=== PATIENT | male | born 1995 | race Two or more races ===

== ENCOUNTER 2025-05-07 19:12 | Emergency (ER) | payer OTHER, SELFPAY ==
[2025-05-07 19:49] VITALS: BP 121/80; PULSE 62; RESP 18; TEMP 37.3; O2SAT 99; BMI 22.6
--- NOTE | 2025-05-07 19:54 | PD.EDNECK ---
ED Neck Injury Pain RME/HPI General Chief Complaint: Neck Pain/Injury Stated Complaint: NECK PAIN TODAY Time Seen by Provider: 05/07/25 19:41 Source: patient, RN notes reviewed and old records reviewed Arrival date/time: 05/07/25 19:12 Mode of arrival: ambulatory Limitations: no limitations RME / HPI RME / HPI Narrative: 30yom presents to ED for right sided neck pain that was present after waking up this morning. Denies preceding injury or fall. Patient reports increased pain with neck ROM to right. No fever, sore throat, focal weakness or numbness/tingling reported. Patient took ibuprofen at 1300 with mild relief. Related Data Previous Rx's ?Medication ?Instructions ?Recorded acetaminophen 500 mg tablet 500 mg PO Q6H PRN pain #30 tabs 05/07/25 (Tylenol Extra Strength) ibuprofen 600 mg tablet 600 mg PO Q6H PRN pain #30 tabs 05/07/25 lidocaine 5 % topical patch 1 patch topical QDAY PRN pain #15 05/07/25 ea methocarbamol 500 mg tablet 1,000 mg (2 x 500 mg) PO Q8H PRN 05/07/25 pain #30 tabs Allergies Allergy/AdvReac Type Severity Reaction Status Date / Time No Known Allergies Allergy Verified 05/07/25 19:14 Review of Systems Review of Systems Systems Reviewed: All systems reviewed, normal except as documented Constitutional Constitutional: Denies chills, Denies fever(s) and Denies headache(s) ENT Ears, Nose, Mouth, and Throat: Denies headache(s) and Reports neck pain Musculoskeletal Musculoskeletal: Reports limited range of motion, Reports neck pain, Denies numbness and Denies tingling Neurologic Neurologic: Denies localized weakness, Denies headache(s), Denies numbness and Denies tingling Past Medical History Surgical History OTHER SURGICAL HX: denies pshx Social History SMOKING STATUS: Never smoker SUBSTANCE USE: does not use ALCOHOL: Never Past Medical History Comments PMH COMMENT: denies pmhx ED Exam General Limitations: Present no limitations General appearance: Present alert and in no apparent distress Head Head exam: Present atraumatic and normocephalic Eye Eye exam: Present normal appearance, PERRL and EOMI ENT ENT exam: Present normal exam, normal oropharynx and mucous membranes moist Neck Neck exam: Present tenderness (right paraspinal, no midline ttp) Chest Chest inspection: Present normal inspection and symmetric chest wall rise Respiratory Respiratory exam: Present normal lung sounds bilaterally; Absent respiratory distress Cardiovascular Cardiovascular exam: Present regular rate and normal rhythm Extremities Exam Extremities exam: Present normal inspection and full ROM Back Exam Back exam: Present full ROM and tenderness (right upper trap); Absent vertebral tenderness Neurological Exam Neurological exam: Present alert, oriented X3 and CN II-XII intact; Absent motor sensory deficit Psychiatric Psychiatric exam: Present normal affect and normal mood Skin Skin exam: Present warm, dry, intact and normal color Course Quality Measures none Orders Category Date Time Status Acetaminophen Tab [Tylenol ES Tab] Med 05/07/25 19:55 Discontinued 1,000 mg PO X1 ONE CYCLObenzaPRINE [Flexeril] Med 05/07/25 19:55 Discontinued 10 mg PO X1 ONE Dexamethasone Inj [Decadron Inj] Med 05/07/25 19:55 Discontinued 10 mg IM X1 ONE Ketorolac Inj [Toradol Inj] Med 05/07/25 19:55 Discontinued 30 mg IM X1 ONE Vital Signs Vital signs: Vital Signs Temperature 99.2 F 05/07/25 19:49 Pulse Rate 62 05/07/25 19:49 Respiratory Rate 18 05/07/25 19:49 Blood Pressure 121/80 05/07/25 19:49 Pulse Oximetry (%) 99 05/07/25 19:49 Oxygen Delivery Method Room Air 05/07/25 19:49 Neck Pain MDM Narrative MDM Narrative:: 30yom presents to ED for right sided neck pain that was present after waking up this morning. Denies preceding injury or fall. Patient reports increased pain with neck ROM to right. No fever, sore throat, focal weakness or numbness/tingling reported. Patient took ibuprofen at 1300 with mild relief. Patient reassessed. Symptoms improved after medications administered. Patient is neurologically intact. Encouraged rest, nsaid, muscle relaxer, ice/heat application prn. Stable for dc, RTED precautions given. Patient data External records reviewed:: None (no prior visits) Clinical information provided by:: patient Social determinants that could affect healthcare access:: other (specify) (poor access to healthcare) Patient has the following chronic illnesses:: none How is presenting disease/condition affected by chronic disease/condition?: no chronic disease Evaluation data The following diagnostics were reviewed and interpreted by me:: other (specify) (none) Lab and/or radiology exams considered but not ordered:: Lspine xrays: no hx of trauma or fall, no midline tenderness Interpretation Summary: na Medications / Prescriptions Medications or Prescriptions considered but not ordered:: no antibiotics recommended at this time Medication administrations:: Medication Administration History Discontinued Medications Acetaminophen (Acetaminophen 500 Mg Tablet) 1,000 mg PO X1 ONE Stop: 05/07/25 19:56 Last Admin: 05/07/25 20:14 Dose: 1,000 mg Documented By: Cyclobenzaprine HCl (Cyclobenzaprine 5 Mg Tablet) 10 mg PO X1 ONE Stop: 05/07/25 19:56 Last Admin: 05/07/25 20:14 Dose: 10 mg Documented By: Dexamethasone Sodium Phosphate (Dexamethasone Sod Phos Inj 10 Mg/Ml Vial) 10 mg IM X1 ONE Stop: 05/07/25 19:56 Last Admin: 05/07/25 20:19 Dose: 10 mg Documented By: Ketorolac Tromethamine (Ketorolac Inj 60 Mg/2 Ml Vial) 30 mg IM X1 ONE Stop: 05/07/25 19:56 Last Admin: 05/07/25 20:15 Dose: 30 mg Documented By: above medications administered in ED Consultations Consultation(s) initiated? (list below): No Diagnosis Neck Differential Diagnosis: cervical radiculopathy, torticollis and strain of neck muscle Most likely diagnosis given after review of the tests above:: neck pain, torticollis Admission Indicated Admission indicated?: not indicated Admission Request Was there a request for admission?: No Disposition Plan Disposition Plan: Discharge Discharge Attestation Discharge Attestation: The patient and all family members were given an opportunity to ask questions and understood the discharge instructions. Discharge instructions specifically effects, indications for sooner follow up or return to the emergency department, and the expected course of current diagnosis. Patient condition: Stable Discharge Plan Plan Patient Disposition: HOME (Self Care) Patient condition on transfer: Stable Prescriptions/Referrals Prescriptions/Med Rec: New ibuprofen 600 mg tablet 600 mg PO Q6H PRN (Reason: pain) Qty: 30 0RF methocarbamol 500 mg tablet 1,000 mg PO Q8H PRN (Reason: pain) Qty: 30 0RF acetaminophen [Tylenol Extra Strength] 500 mg tablet 500 mg PO Q6H PRN (Reason: pain) Qty: 30 0RF lidocaine 5 % adhesive patch,medicated 1 patch topical QDAY PRN (Reason: pain) Qty: 15 0RF Rx Instructions: leave on most painful area for up to 12 hrs Referrals: No Primary/Family,Physician [Primary Care Provider] - In 1 week Problem List Clinical Impression: Neck pain Patient/Caregiver Discharge Instructions Education Materials: ED Neck Pain No Trauma Print Language: Irish Stand Alone Forms: Breann Award Info., Patient Portal Info Letter PA/PATIENT SUPPORT ASSOCIATE Supervising Physician PA/PATIENT SUPPORT ASSOCIATE Supervising Physician: Rinku
[2025-05-07] MEDS: ACETAMINOPHEN 500 MG TABLET 1000 MG PO (20:14)
[2025-05-07] MEDS: CYCLObenzaPRINE 5 MG TABLET 10 MG PO (20:14)
[2025-05-07] MEDS: KETOROLAC INJ 60 MG/2 ML VIAL 30 MG IM (20:15)
[2025-05-07] MEDS: DEXAMETHASONE SOD PHOS INJ 10 MG/ML VIAL IM (20:19)
== END 2025-05-07 21:44 | disposition home or self-care (01) ==
PROVIDERS: Emergency Provider Emergency Medicine
DX: M54.2 Cervicalgia (principal)
CPT/HCPCS: 96372; 99283; J1100; J1885; A9270